=== PATIENT | male | born 1960 | race Caucasian/White ===

== ENCOUNTER 2017-01-25 18:25 | Emergency (ER) | payer BC ==
[2017-01-25 18:58] VITALS: BP 122/80
--- NOTE | 2017-01-25 19:15 | UC ---
Hand/Wrist HPI - HPI Summary HPI Summary: 56 yo male with the onset of right ring ringer pain and swelling yesterday after working in the cold does not remember a specific injury no finger swollen / pain - History Of Current Complaint Chief Complaint: UCUpperExtremity Stated Complaint: RIGHT RING FINGER INFECTION Time Seen by Provider: 01/25/17 19:02 Hx Obtained From: Patient Onset/Duration: Gradual Onset, Lasting Days - 1 Pain Scale Used: 0-10 Numeric Character Of Pain: Dull Aggravating Factor(s): Movement Associated Signs And Symptoms: Positive: Swelling, Redness, Bruising - Allergies/Home Medications Allergies/Adverse Reactions: Allergies Allergy/AdvReac Type Severity Reaction Status Date / Time No Known Allergies Allergy Verified 01/25/17 18:57 PMH/Surg Hx/FS Hx/Imm Hx Previously Healthy: Yes - Surgical History Surgical History: None - Social History Alcohol Use: Rare Substance Use Type: None Smoking Status (MU): Never Smoked Tobacco - Immunization History Most Recent Tetanus Shot: 2010 Review of Systems Constitutional: Negative Skin: Negative Eyes: Negative ENT: Negative Respiratory: Negative Cardiovascular: Negative Gastrointestinal: Negative Genitourinary: Negative Motor: Negative Neurovascular: Negative Musculoskeletal: Arthralgia Neurological: Negative Psychological: Negative All Other Systems Reviewed And Are Negative: Yes Physical Exam Triage Information Reviewed: Yes Appearance: Well-Appearing, No Pain Distress, Well-Nourished Vital Signs: Initial Vital Signs Temp 99.3 F 01/25/17 18:48 Pulse 52 01/25/17 18:48 Resp 16 01/25/17 18:48 BP 122/80 01/25/17 18:48 Pulse Ox 100 01/25/17 18:48 Vital Signs Reviewed: Yes Eyes: Positive: Conjunctiva Clear ENT: Negative: Nasal congestion, Nasal drainage, Trismus, Muffled/hoarse voice Neck: Positive: Supple Respiratory: Positive: Lungs clear, Normal breath sounds, No respiratory distress, No accessory muscle use Cardiovascular: Positive: RRR Musculoskeletal: Positive: Other: - see image Hand/Wrist Course/Dx - Course Course Of Treatment: pt is unsure if he will take antibioitic...may pick them up in a day or two - Differential Dx/Diagnosis Provider Diagnoses: right ring finger swelling? sprain vs cellulitis Discharge - Discharge Plan Condition: Stable Disposition: HOME Prescriptions: Cephalexin CAP* [Keflex CAP*] 500 mg PO QID #28 cap Patient Education Materials: Cellulitis (ED), Finger Sprain (ED) Referrals: Neto Beckett DO [Primary Care Provider] - Additional Instructions: recheck for new or worsening symptoms start antibiotics if finger becomes more swollen or feels warm Images Hands: 1 - tender /sl swelling/bruising
--- NOTE | 2017-01-25 19:47 | RAD ---
Indication: RIGHT ring finger red and swollen since yesterday. Attention middle phalanx into the proximal interphalangeal joint and proximal phalanx. Associated pain. No preceding injury. Comparison: None. Technique: 3 views RIGHT fourth finger. Report: Soft tissue swelling most prominent at the proximal interphalangeal joint over the dorsal aspect without visualized foreign body or subcutaneous emphysema. Normal articular alignment. No significant arthropathic change evident. Negative for fracture. IMPRESSION: Soft tissue swelling without additional finding.
== END 2017-01-25 19:46 | disposition home or self-care (01) ==
LOC: UCCORT 18:25
DX: M79.89 Other specified soft tissue disorders (principal); M79.644 Pain in right finger(s)
CPT/HCPCS: 73140; 99212; G0463